=== PATIENT | male | born 1945 ===

== ENCOUNTER 2019-02-16 13:24 | Outpatient (RCR) | payer MEDICARE, OTHER ==
[~2019-02-16 13:24] MED LIST: ASPIRIN EC81 MG ORAL; ATORVASTATIN CA10 MG ORAL; COLACE100 MG/10 ORAL; GLIMEPIRIDE1 MG ORAL; GLIMEPIRIDE4 MG ORAL; LABETALOL HCL100 MG ORAL; MINOXIDIL2.5 MG PO; NIFEDIPINE ER60 M2 ORAL; NIFEDIPINE XL30 M1 ORAL; OMEPRAZOLE20 M2 ORAL; PLAVIX75 MG ORAL; RENVELA800 MG ORAL; SENSIPAR30 MG ORAL; ZOLPIDEM TARTRA10 MG ORAL; ZOLPIDEM TARTRAT5 MG ORAL
== END 2019-02-21 | disposition home or self-care (01) ==
LOC: WCC 13:24
DX: E11.42 Type 2 diabetes mellitus with diabetic polyneuropathy (principal); G99.0 Autonomic neuropathy in diseases classified elsewhere
CPT/HCPCS: G0463